=== PATIENT | female | born 1960 | race African-American/Black ===

== ENCOUNTER 2018-06-29 16:34 | Inpatient (IN) | payer MEDICARE ==
[~2018-06-29] VITALS: Ht 162.6 cm; Wt 94.3 kg
[2018-06-29] MEDS ORDERED: HYDR-3895 PO (16:58)
[2018-06-29] MEDS ORDERED: TOPI100T38 PO (16:58)
[2018-06-29] MEDS ORDERED: CLON1TAB12 PO (16:58)
[2018-06-29] MEDS ORDERED: TRAZ-182 PO (16:58)
[2018-06-29] MEDS ORDERED: ALBU18HF2 INH (16:58)
[2018-06-29] MEDS ORDERED: BUPR200T PO (16:58)
[2018-06-29] MEDS ORDERED: MAG HYDROX/AL HYDROX/SIMETH 30 ML UDC PO PRN (17:00)
[2018-06-29] MEDS ORDERED: MAGNESIUM HYDROXIDE 30 ML UDC PO PRN (17:00)
[2018-06-29] MEDS ORDERED: MULT-1168 PO (17:21)
[2018-06-29] MEDS ORDERED: CHOL100044 PO (17:21)
[2018-06-29] MEDS ORDERED: TACR30OI4 TP (17:21)
[2018-06-29] MEDS ORDERED: ACET-868 PO (17:21)
[2018-06-29] MEDS ORDERED: ACETAMINOPHEN 325 MG TABLET PO PRN (19:30)
[2018-06-29] MEDS: TACROLIMUS 0.1% XX SCH (20:00)
[2018-06-29] MEDS: hydrOXYzine PAMOATE 25 MG CAPSULE PO PRN (20:00)
[2018-06-29] MEDS: clonazePAM 0.5 MG TABLET PO PRN ×2 (20:07→23:14)
[2018-06-29 20:33] VITALS: BP 129/73
[2018-06-30] MEDS: TEMAZEPAM 7.5 MG CAPSULE PO PRN ×2 (01:29→20:08)
[2018-06-30 08:00] VITALS: BP 126/59
[2018-06-30 09:00] LABS: POTASSIUM 4.5 mmol/L (3.5-5.1)
[2018-06-30 09:01] LABS: BILIRUBIN,TOTAL 0.2 mg/dL (0.2-1.0); CALCIUM, SERUM 8.6 mg/dL (8.5-10.1); CREATININE 0.7 mg/dL (0.6-1.3)
[2018-06-30] MEDS: TOPIRAMATE 100 MG TABLET PO SCH (09:13)
[2018-06-30] MEDS: CHOLECALCIFEROL 1,000 UNIT TABLET (VIT D3) PO SCH ×2 (09:13→11:46)
[2018-06-30] MEDS: MULTIVITAMINS,THERAGRAN 1 UDTAB TABLET PO SCH ×2 (09:13→11:46)
[2018-06-30] MEDS: TACROLIMUS 0.1% XX SCH ×2 (09:14→18:42)
[2018-06-30] MEDS: clonazePAM 0.5 MG TABLET PO PRN ×3 (09:25→22:34)
[2018-06-30] MEDS: hydrOXYzine PAMOATE 25 MG CAPSULE PO PRN ×3 (11:39→20:08)
[2018-06-30 15:58] LABS: APPEARANCE,URINE CLEAR (CLEAR); BILIRUBIN,URINE NEGATIVE (NEGATIVE); BLOOD, URINE NEGATIVE Ery/uL (NEGATIVE); COLOR,URINE YELLOW (YELLOW); KETONES,URINE NEGATIVE (NEGATIVE); LEUKOCYTE ESTERASE ,URINE NEGATIVE (NEGATIVE); NITRITE, URINE NEGATIVE (NEGATIVE); PH,URINE 7.5 (5.0-8.0); PROTEIN,URINE NEGATIVE (NEGATIVE); UGLUCOSE NEGATIVE (NEGATIVE); UROBILINOGEN,URINE 0.2 EU/dL (0.2)
[2018-06-30 16:00] VITALS: BP_SYST 107; BP_SYST 144; BP_DIAS 62; BP_DIAS 99
[2018-06-30 16:07] LABS: OSMOLALITY,URINE 431 mOS/kg (340-1090)
[2018-06-30] MEDS: buPROPion SR 150 MG TABLET.ER PO SCH (16:31)
[2018-06-30 17:26] LABS: URINE SODIUM, RANDOM 133 mmol/l (40-220)
[2018-06-30 20:14] VITALS: BP 132/76
[2018-06-30] MEDS: TRAZODONE 50 MG TABLET PO PRN (22:34)
[2018-07-01] MEDS: hydrOXYzine PAMOATE 25 MG CAPSULE PO PRN ×4 (02:28→19:29)
[2018-07-01] MEDS: clonazePAM 0.5 MG TABLET PO PRN ×4 (02:31→19:30)
[2018-07-01 07:23] LABS: BASOPHILS % (AUTO) 0.6 % (0.0-2.0); EOSINOPHILS % (AUTO) 3.5 % (0.0-6.0); HEMATOCRIT 40 % (33-45); HEMOGLOBIN 13.2 g/dL (11.5-14.8); LYMPHOCYTES % (AUTO) 44.5 % (20.0-44.0); MEAN CORPUSCULAR HGB CONC 33 g/dl (31.0-36.0); MEAN CORPUSCULAR VOLUME 86 fL (82-100); MONOCYTES # (AUTO) 0.3 /CMM (0.1-1.30); MONOCYTES % (AUTO) 13.9 % (2.0-12.0); NEUTROPHILS # (AUTO) 0.9 /CMM (1.8-8.9); NEUTROPHILS % (AUTO) 37.5 % (43.0-81.0); PLATELET COUNT (AUTO) 180 /CMM (150-450); RED BLOOD CELL COUNT(AUTO) 4.71 MIL/uL (4.0-5.2); WHITE BLOOD COUNT (AUTO) 2.3 K/uL (4.3-11.0)
[2018-07-01 07:38] LABS: THYROID STIMULATING HORMONE 2.821 uIU/mL (0.358-3.74)
[2018-07-01 07:55] LABS: CALCIUM, SERUM 9.1 mg/dL (8.5-10.1); CREATININE 0.9 mg/dL (0.6-1.3); PHOSPHORUS 4.1 mg/dL (2.5-4.9); POTASSIUM 4.2 mmol/L (3.5-5.1)
[2018-07-01 07:56] LABS: ALBUMIN 3.5 g/dL (3.4-5.0); BILIRUBIN,TOTAL 0.4 mg/dL (0.2-1.0); MAGNESIUM 1.9 mg/dL (1.8-2.4)
[2018-07-01 08:00] VITALS: BP 115/72
[2018-07-01] MEDS: MULTIVITAMINS,THERAGRAN 1 UDTAB TABLET PO SCH (08:54)
[2018-07-01] MEDS: TOPIRAMATE 100 MG TABLET PO SCH (08:54)
[2018-07-01] MEDS: buPROPion SR 150 MG TABLET.ER PO SCH (08:54)
[2018-07-01] MEDS: CHOLECALCIFEROL 1,000 UNIT TABLET (VIT D3) PO SCH (08:54)
[2018-07-01] MEDS: TACROLIMUS 0.1% XX SCH ×2 (08:56→17:38)
[2018-07-01] MEDS: ACETAMINOPHEN 325 MG TABLET PO PRN (09:03)
[2018-07-01 10:07] LABS: EOSINOPHILS % (MANUAL) 2 % (0-4); LYMPHOCYTES % (MANUAL) 38 % (16-48); MONOCYTES % (MANUAL) 16 % (0-11.0); NEUTROPHILS % (MANUAL) 44 (42-76)
[2018-07-01 16:00] VITALS: BP 100/68
[2018-07-01 20:00] VITALS: BP 119/69
[2018-07-01] MEDS: TEMAZEPAM 7.5 MG CAPSULE PO PRN (20:48)
[2018-07-01] MEDS: MICONAZOLE NITRATE VAG CREAM 45 GM TUBE VG SCH (21:45)
[2018-07-01] MEDS ORDERED: SULFANILAMIDE VAG CR 120 GM TUBE VG SCH (22:00)
[2018-07-01] MEDS: TRAZODONE 50 MG TABLET PO PRN (23:02)
[2018-07-02 08:00] VITALS: BP 121/69
[2018-07-02] MEDS: TOPIRAMATE 100 MG TABLET PO SCH (08:30)
[2018-07-02] MEDS: MULTIVITAMINS,THERAGRAN 1 UDTAB TABLET PO SCH (08:30)
[2018-07-02] MEDS: CHOLECALCIFEROL 1,000 UNIT TABLET (VIT D3) PO SCH (08:30)
[2018-07-02] MEDS: buPROPion SR 150 MG TABLET.ER PO SCH (08:30)
[2018-07-02] MEDS: ACETAMINOPHEN 325 MG TABLET PO PRN ×2 (08:32→20:09)
[2018-07-02] MEDS: TACROLIMUS 0.1% XX SCH ×2 (09:00→17:00)
[2018-07-02] MEDS: hydrOXYzine PAMOATE 25 MG CAPSULE PO PRN ×3 (09:36→22:28)
[2018-07-02] MEDS: clonazePAM 0.5 MG TABLET PO PRN ×3 (09:36→20:06)
[2018-07-02 16:19] VITALS: BP 100/67
[2018-07-02] MEDS: HYDROCORTISONE 1% CREAM 28.35 GM TUBE TP SCH (17:08)
[2018-07-02 20:00] VITALS: BP 109/61
[2018-07-02] MEDS: TEMAZEPAM 7.5 MG CAPSULE PO PRN (20:06)
[2018-07-02] MEDS: MICONAZOLE NITRATE VAG CREAM 45 GM TUBE VG SCH (21:29)
[2018-07-02] MEDS: TRAZODONE 50 MG TABLET PO PRN (23:04)
[2018-07-03 07:00] LABS: BASOPHILS % (AUTO) 0.6 % (0.0-2.0); EOSINOPHILS % (AUTO) 3.8 % (0.0-6.0); HEMATOCRIT 36 % (33-45); HEMOGLOBIN 11.9 g/dL (11.5-14.8); LYMPHOCYTES # (AUTO) 0.9 /CMM (0.8-4.8); LYMPHOCYTES % (AUTO) 38.2 % (20.0-44.0); MEAN CORPUSCULAR HGB CONC 33 g/dl (31.0-36.0); MEAN CORPUSCULAR VOLUME 85 fL (82-100); MONOCYTES # (AUTO) 0.4 /CMM (0.1-1.30); MONOCYTES % (AUTO) 19.1 % (2.0-12.0); NEUTROPHILS # (AUTO) 0.9 /CMM (1.8-8.9); NEUTROPHILS % (AUTO) 38.3 % (43.0-81.0); PLATELET COUNT (AUTO) 148 /CMM (150-450); RED BLOOD CELL COUNT(AUTO) 4.26 MIL/uL (4.0-5.2); WHITE BLOOD COUNT (AUTO) 2.2 K/uL (4.3-11.0)
[2018-07-03 07:20] LABS: CALCIUM, SERUM 8.4 mg/dL (8.5-10.1); CREATININE 0.8 mg/dL (0.6-1.3); PHOSPHORUS 3.7 mg/dL (2.5-4.9); POTASSIUM 4.3 mmol/L (3.5-5.1)
[2018-07-03 08:00] VITALS: BP 123/59
[2018-07-03] MEDS: TACROLIMUS 0.1% XX SCH ×3 (09:00→17:00)
[2018-07-03 09:04] LABS: BAND % (MANUAL) 3 % (0.0-5.0); EOSINOPHILS % (MANUAL) 4 % (0-4); LYMPHOCYTES % (MANUAL) 29 % (16-48); MONOCYTES % (MANUAL) 15 % (0-11.0); NEUTROPHILS % (MANUAL) 49 (42-76)
[2018-07-03] MEDS: TOPIRAMATE 100 MG TABLET PO SCH (09:08)
[2018-07-03] MEDS: clonazePAM 0.5 MG TABLET PO PRN ×2 (09:08→14:35)
[2018-07-03] MEDS: MULTIVITAMINS,THERAGRAN 1 UDTAB TABLET PO SCH (09:08)
[2018-07-03] MEDS: CHOLECALCIFEROL 1,000 UNIT TABLET (VIT D3) PO SCH (09:08)
[2018-07-03] MEDS: buPROPion SR 150 MG TABLET.ER PO SCH (09:08)
[2018-07-03] MEDS: HYDROCORTISONE 1% CREAM 28.35 GM TUBE TP SCH ×2 (09:15→17:27)
[2018-07-03] MEDS: hydrOXYzine PAMOATE 25 MG CAPSULE PO PRN ×3 (09:17→15:44)
[2018-07-03] MEDS: ACETAMINOPHEN 325 MG TABLET PO PRN (14:35)
[2018-07-03 16:00] VITALS: BP 113/63
[2018-07-03] MEDS ORDERED: OLANZAPINE 10 MG VIAL IM STA (17:01)
[2018-07-03 20:00] VITALS: BP 139/66
[2018-07-03] MEDS: MICONAZOLE NITRATE VAG CREAM 45 GM TUBE VG SCH (22:36)
[2018-07-04] MEDS: clonazePAM 0.5 MG TABLET PO PRN ×5 (03:58→23:31)
[2018-07-04] MEDS: hydrOXYzine PAMOATE 25 MG CAPSULE PO PRN ×4 (03:59→22:37)
[2018-07-04 08:00] VITALS: BP 113/63
[2018-07-04] MEDS: TACROLIMUS 0.1% XX SCH ×2 (09:00→17:00)
[2018-07-04] MEDS: CHOLECALCIFEROL 1,000 UNIT TABLET (VIT D3) PO SCH (09:28)
[2018-07-04] MEDS: HYDROCORTISONE 1% CREAM 28.35 GM TUBE TP SCH ×2 (09:29→18:31)
[2018-07-04] MEDS: buPROPion SR 150 MG TABLET.ER PO SCH (09:29)
[2018-07-04] MEDS: MULTIVITAMINS,THERAGRAN 1 UDTAB TABLET PO SCH (09:29)
[2018-07-04] MEDS: TOPIRAMATE 100 MG TABLET PO SCH (09:29)
[2018-07-04 15:17] LABS: URINE SODIUM, RANDOM 84 mmol/l (40-220)
[2018-07-04 15:24] LABS: OSMOLALITY,URINE 642 mOS/kg (340-1090)
[2018-07-04 16:00] VITALS: BP 114/63
[2018-07-04 21:09] VITALS: BP 101/54
[2018-07-04] MEDS: MICONAZOLE NITRATE VAG CREAM 45 GM TUBE VG SCH (22:27)
[2018-07-04] MEDS: TEMAZEPAM 7.5 MG CAPSULE PO PRN (23:20)
[2018-07-04] MEDS: TRAZODONE 50 MG TABLET PO PRN (23:50)
[2018-07-05] MEDS: clonazePAM 0.5 MG TABLET PO PRN ×4 (06:30→22:23)
[2018-07-05] MEDS: hydrOXYzine PAMOATE 25 MG CAPSULE PO PRN ×3 (06:46→22:25)
[2018-07-05 08:00] VITALS: BP 122/60
[2018-07-05] MEDS: CHOLECALCIFEROL 1,000 UNIT TABLET (VIT D3) PO SCH (09:03)
[2018-07-05] MEDS: TOPIRAMATE 100 MG TABLET PO SCH (09:03)
[2018-07-05] MEDS: buPROPion SR 150 MG TABLET.ER PO SCH (09:04)
[2018-07-05] MEDS: MULTIVITAMINS,THERAGRAN 1 UDTAB TABLET PO SCH (09:04)
[2018-07-05] MEDS: TACROLIMUS 0.1% XX SCH ×2 (09:06→17:00)
[2018-07-05] MEDS: HYDROCORTISONE 1% CREAM 28.35 GM TUBE TP SCH ×2 (09:08→17:00)
[2018-07-05] MEDS: ACETAMINOPHEN 325 MG TABLET PO PRN ×2 (11:05→23:38)
[2018-07-05] MEDS: METRONIDAZOLE 500 MG TABLET PO SCH ×2 (14:29→21:00)
[2018-07-05 16:00] VITALS: BP 111/55
[2018-07-05 19:54] VITALS: BP 110/62
[2018-07-05] MEDS: MICONAZOLE NITRATE VAG CREAM 45 GM TUBE VG SCH (21:00)
[2018-07-05] MEDS: TEMAZEPAM 7.5 MG CAPSULE PO PRN (21:36)
[2018-07-05] MEDS: TRAZODONE 50 MG TABLET PO PRN (23:24)
[2018-07-06] MEDS: clonazePAM 0.5 MG TABLET PO PRN ×3 (05:13→20:12)
[2018-07-06] MEDS: hydrOXYzine PAMOATE 25 MG CAPSULE PO PRN ×3 (05:14→22:11)
[2018-07-06] MEDS: ACETAMINOPHEN 325 MG TABLET PO PRN ×2 (05:50→20:12)
[2018-07-06 08:00] VITALS: BP 112/63
[2018-07-06] MEDS: METRONIDAZOLE 500 MG TABLET PO SCH (09:07)
[2018-07-06] MEDS: CHOLECALCIFEROL 1,000 UNIT TABLET (VIT D3) PO SCH (09:07)
[2018-07-06] MEDS: MULTIVITAMINS,THERAGRAN 1 UDTAB TABLET PO SCH (09:07)
[2018-07-06] MEDS: buPROPion SR 150 MG TABLET.ER PO SCH (09:07)
[2018-07-06] MEDS: TOPIRAMATE 100 MG TABLET PO SCH (09:07)
[2018-07-06] MEDS: HYDROCORTISONE 1% CREAM 28.35 GM TUBE TP SCH ×2 (09:08→17:00)
[2018-07-06] MEDS: TACROLIMUS 0.1% XX SCH ×2 (09:08→17:00)
[2018-07-06 17:27] VITALS: BP 118/71
[2018-07-06 20:31] VITALS: BP 123/65
[2018-07-06] MEDS: MICONAZOLE NITRATE VAG CREAM 45 GM TUBE VG SCH (21:21)
[2018-07-06] MEDS: TEMAZEPAM 7.5 MG CAPSULE PO PRN (21:24)
[2018-07-06] MEDS: TRAZODONE 50 MG TABLET PO PRN (23:32)
[2018-07-07] MEDS: clonazePAM 0.5 MG TABLET PO PRN ×3 (05:59→16:31)
[2018-07-07] MEDS ORDERED: hydrOXYzine PAMOATE 25 MG CAPSULE ONE (06:08)
[2018-07-07] MEDS: hydrOXYzine PAMOATE 25 MG CAPSULE PO PRN ×3 (06:10→22:05)
[2018-07-07 08:00] VITALS: BP 124/58
[2018-07-07] MEDS: ACETAMINOPHEN 325 MG TABLET PO PRN (08:35)
[2018-07-07] MEDS: HYDROCORTISONE 1% CREAM 28.35 GM TUBE TP SCH ×2 (08:35→16:33)
[2018-07-07] MEDS: TACROLIMUS 0.1% XX SCH ×2 (08:35→16:33)
[2018-07-07] MEDS: buPROPion SR 150 MG TABLET.ER PO SCH (08:36)
[2018-07-07] MEDS: CHOLECALCIFEROL 1,000 UNIT TABLET (VIT D3) PO SCH (08:36)
[2018-07-07] MEDS: MULTIVITAMINS,THERAGRAN 1 UDTAB TABLET PO SCH (08:36)
[2018-07-07] MEDS: TOPIRAMATE 100 MG TABLET PO SCH (08:36)
[2018-07-07] MEDS: HYDROCODONE/APAP 5/325MG 1 EACH TABLET PO PRN ×2 (14:14→20:30)
[2018-07-07 16:00] VITALS: BP 107/56
[2018-07-07 20:13] VITALS: BP 95/75
[2018-07-07] MEDS: MICONAZOLE NITRATE VAG CREAM 45 GM TUBE VG SCH (22:09)
[2018-07-07] MEDS: TRAZODONE 50 MG TABLET PO PRN (22:22)
[2018-07-08] MEDS: TEMAZEPAM 7.5 MG CAPSULE PO PRN (03:00)
[2018-07-08] MEDS: HYDROCODONE/APAP 5/325MG 1 EACH TABLET PO PRN (06:32)
[2018-07-08 08:45] VITALS: BP 102/56
[2018-07-08] MEDS: MULTIVITAMINS,THERAGRAN 1 UDTAB TABLET PO SCH (08:52)
[2018-07-08] MEDS: buPROPion SR 150 MG TABLET.ER PO SCH (08:52)
[2018-07-08] MEDS: CHOLECALCIFEROL 1,000 UNIT TABLET (VIT D3) PO SCH (08:52)
[2018-07-08] MEDS: TOPIRAMATE 100 MG TABLET PO SCH (08:52)
[2018-07-08] MEDS: HYDROCORTISONE 1% CREAM 28.35 GM TUBE TP SCH (08:53)
[2018-07-08] MEDS: TACROLIMUS 0.1% XX SCH (08:53)
== END 2018-07-08 10:35 | DRG 885 ==
LOC: GPS 16:34
PROVIDERS: ADMIT Psychiatry & Neurology Psychiatry; ATTEND Nurse Practitioner Acute Care
DX: F33.2 Major depressive disorder, recurrent severe without psychotic features (principal); E87.0 Hyperosmolality and hypernatremia; F29 Unspecified psychosis not due to a substance or known physiological condition; F12.90 Cannabis use, unspecified, uncomplicated; F43.10 Post-traumatic stress disorder, unspecified; F41.9 Anxiety disorder, unspecified; Z90.49 Acquired absence of other specified parts of digestive tract; Z98.84 Bariatric surgery status; Z79.899 Other long term (current) drug therapy; L30.9 Dermatitis, unspecified; Z59.0 Homelessness; R30.0 Dysuria; N89.8 Other specified noninflammatory disorders of vagina
CPT/HCPCS: 36415; 80048-TC; 80053-TC; 80061-TC; 81000-TC; 83735-TC; 83935-TC; 84100-TC; 84300-TC; 84443-TC; 85025-TC; 87070-TC; 87081-TC; 87086-TC; J3490; Q0177